=== PATIENT | female | born 1995 | race Caucasian/White ===

== ENCOUNTER → 2018-03-07 21:28 | Emergency (ER) | payer MEDICAID, OTHER ==
[~2018-03-07 21:28] MED LIST: Ibuprofen TAB* 600 MG PO ONE
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
[2018-03-07 23:42] VITALS: BP 136/83
== END | disposition home or self-care (01) ==
LOC: ED 21:28
DX: R07.2 Precordial pain (principal); S29.9XXA Unspecified injury of thorax, initial encounter; Y04.2XXA Assault by strike against or bumped into by another person, initial encounter; Y92.239 Unspecified place in hospital as the place of occurrence of the external cause; Y99.0 Civilian activity done for income or pay
CPT/HCPCS: 71120; 93005; 99282; A9270-GY

== ENCOUNTER 2018-08-18 11:42 | Emergency (ER) | payer MEDICAID, OTHER ==
[2018-08-18 11:52] VITALS: BP 127/81
--- NOTE | 2018-08-18 12:02 | UC ---
Laceration HPI - HPI Summary HPI Summary: 23 yo female presents with LEFT 5th digit laceration. She tells me that she was slicing sweet potatoes and the knife slipped and she sustained a laceration to her left 5th digit. She bandaged the area and came to . She believes her tetanus is up to date. - History Of Current Complaint Chief Complaint: UCLaceration Stated Complaint: FINGER LAC Time Seen by Provider: 08/18/18 12:01 Hx Obtained From: Patient Hx Last Menstrual Period: iud Laceration Location: Finger Mechanism Of Injury: Sharp Trauma Onset/Duration: Sudden Onset Severity: Mild Pain Intensity: 4 Pain Scale Used: 0-10 Numeric - Allergies/Home Medications Allergies/Adverse Reactions: Allergies Allergy/AdvReac Type Severity Reaction Status Date / Time No Known Allergies Allergy Verified 08/18/18 11:52 Home Medications: Home Medications NK [No Home Medications Reported] 08/18/18 [History Confirmed 08/18/18] PMH/Surg Hx/FS Hx/Imm Hx - Additional Past Medical History Additional PMH: None - Surgical History Surgical History: None - Family History Known Family History: Positive: None Family History: Reviewed & N/C - Social History Occupation: Employed Full-time Lives: With Family Alcohol Use: Weekly Substance Use Type: None Smoking Status (MU): Never Smoked Tobacco - Immunization History Vaccination Up to Date: Yes Review of Systems All Other Systems Reviewed And Are Negative: Yes Constitutional: Positive: Negative Skin: Positive: Other - Left 5th finger laceration Respiratory: Positive: Negative Cardiovascular: Positive: Negative Musculoskeletal: Positive: Negative Neurological: Positive: Negative Psychological: Positive: Negative Physical Exam - Summary Physical Exam Summary: GENERAL: NAD. WDWN. No pain distress. SKIN: LEFT 5th finger pad with 5mm superficial linear horizontal laceration. No active bleeding. clean wound. CHEST: No accessory muscle use. Breathing comfortably and in no distress. CV: Pulses intact. Cap refill <2seconds NEURO: Alert. PSYCH: Age appropriate behavior. Triage Information Reviewed: Yes Vital Signs: Initial Vital Signs Temp 97.9 F 08/18/18 11:49 Pulse 83 08/18/18 11:49 Resp 18 08/18/18 11:49 BP 127/81 08/18/18 11:49 Pulse Ox 100 08/18/18 11:49 Vital Signs Reviewed: Yes Laceration Repair - Laceration Repair 1 Description: Linear Laceration Size After Repair: Length (cm) - 0.5 Modified For Repair: No Cleansing Completed Via Routine Prep: Yes Closure Material: Skin Adhesive Closure Method: Single Layer Suture Of: Skin Laceration Course/Dx - Course/Dx Course Of Treatment: Wound was cleansed with NS. Lac was well approximated at rest, therefore dermabond was applied and bandaged with a band-aid. - Diagnosis Provider Diagnosis: Finger laceration Discharge - Sign-Out/Discharge Documenting (check all that apply): Patient Departure All imaging exams completed and their final reports reviewed: No Studies - Discharge Plan Condition: Stable Disposition: HOME Patient Education Materials: Skin Adhesive Care (ED) Referrals: Sarbjit Calle MD [Primary Care Provider] - Additional Instructions: If you develop a fever, shortness of breath, chest pain, new or worsening symptoms - please call your PCP or go to the ED. Apply a band-aid until well healed (2-3 days likely) - Billing Disposition and Condition Condition: STABLE Disposition: Home
== END 2018-08-18 12:15 | disposition home or self-care (01) ==
LOC: UCEAST 11:42
DX: S61.217A Laceration without foreign body of left little finger without damage to nail, initial encounter (principal); W26.0XXA Contact with knife, initial encounter; Y93.G1 Activity, food preparation and clean up; Y92.9 Unspecified place or not applicable
CPT/HCPCS: 12001; 99211; G0463

== ENCOUNTER 2019-05-01 13:49 | Emergency (ER) | payer OTHER ==
[2019-05-01 14:14] VITALS: BP 155/78
--- NOTE | 2019-05-01 14:39 | UC ---
Respiratory Complaint HPI - HPI Summary HPI Summary: has had cough for 10 days, getting worse over past 3-4 days, congestion worse, last night slept sitting up d/t cough. is using OTC cough/cold medsa w/o relief. also has had fever for 4 days - History of Current Complaint Chief Complaint: UCRespiratory Stated Complaint: COUGH CHEST CONGESTION Time Seen by Provider: 05/01/19 14:26 Hx Obtained From: Patient Hx Last Menstrual Period: one week ago ?: No Onset/Duration: Gradual Onset Timing: Constant Severity Initially: Mild Severity Currently: Moderate Pain Intensity: 2 Character: Cough: Nonproductive Aggravating Factors: Deep Breaths, Recumbent Position Alleviating Factors: Nothing Associated Signs And Symptoms: Positive: Fever, Nasal Congestion. Negative: Wheezing, Hemoptysis, Sinus Discomfort - Allergies/Home Medications Allergies/Adverse Reactions: Allergies Allergy/AdvReac Type Severity Reaction Status Date / Time No Known Allergies Allergy Verified 05/01/19 14:15 Home Medications: Home Medications QUEtiapine TAB* [Seroquel 100 MG *] 1 tab PO DAILY 05/01/19 [History Confirmed 05/01/19] PMH/Surg Hx/FS Hx/Imm Hx Previously Healthy: Yes Psychological History: Bipolar Disorder - Surgical History Surgical History: None - Family History Known Family History: Positive: None Family History: Reviewed & N/C - Social History Occupation: Employed Part-time Lives: With Family Alcohol Use: Occasionally Substance Use Type: None Smoking Status (MU): Never Smoked Tobacco - Immunization History Vaccination Up to Date: Yes Review of Systems All Other Systems Reviewed And Are Negative: Yes Constitutional: Positive: Fever, Fatigue Skin: Positive: Negative. Negative: Rash ENT: Positive: Sore Throat - resolved over past 48h, Sinus Congestion Respiratory: Positive: Cough. Negative: Shortness Of Breath Cardiovascular: Positive: Negative Gastrointestinal: Positive: Negative. Negative: Vomiting, Diarrhea, Nausea Musculoskeletal: Positive: Negative Neurological: Positive: Negative. Negative: Headache Psychological: Positive: Negative Is Patient Immunocompromised?: No Physical Exam Triage Information Reviewed: Yes Appearance: No Pain Distress, Well-Nourished Vital Signs: Initial Vital Signs Temp 99.1 F 05/01/19 14:11 Pulse 104 05/01/19 14:11 Resp 18 05/01/19 14:11 BP 155/78 05/01/19 14:11 Pulse Ox 99 05/01/19 14:11 Vital Signs Reviewed: Yes Eye Exam: Normal Eyes: Positive: Conjunctiva Clear ENT: Positive: Pharynx normal, Nasal congestion, TMs normal. Negative: Nasal drainage, Sinus tenderness Neck exam: Normal Neck: Positive: Supple, Nontender, No Lymphadenopathy Respiratory: Positive: Lungs clear, No respiratory distress, No accessory muscle use, Other: - persistent, non-productive cough, no evidence SOB Cardiovascular Exam: Normal Cardiovascular: Positive: RRR Neurological Exam: Normal Psychological Exam: Normal Skin Exam: Normal Skin: Negative: Rashes Respiratory Course/Dx - Differential Dx/Diagnosis Differential Diagnosis/HQI/PQRI: Bronchitis, Influenza, Lower Resp Infection, Sinusitis Provider Diagnosis: Bronchitis Discharge ED - Sign-Out/Discharge Documenting (check all that apply): Patient Departure All imaging exams completed and their final reports reviewed: No Studies - Discharge Plan Condition: Good Disposition: HOME Prescriptions: Azithromycin TAB* [Zithromax TAB (Z-LALA) 250 mg #6 tabs] 2 tab PO .TODAY, THEN 1 DAILY #1 lala predniSONE [Prednisone 20 MG TAB] 20 mg PO DAILY #6 tablet Patient Education Materials: Acute Bronchitis (ED) Forms: *Work Release Referrals: Sarbjit Calle MD [Primary Care Provider] - 3 Days (if no better) Additional Instructions: drink plenty of fluids and rest start antibiotic and prednisone and take as prescribed sofie Tylenol or ibuprofen as directed for fever - Billing Disposition and Condition Condition: GOOD Disposition: Home
== END 2019-05-01 14:50 | disposition home or self-care (01) ==
LOC: UCEAST 13:49
DX: J40 Bronchitis, not specified as acute or chronic (principal); R09.81 Nasal congestion
CPT/HCPCS: 99212; G0463